=== PATIENT | male | born 1990 | race Two or more races ===

== ENCOUNTER 2016-10-07 17:32 | Emergency (ER) | payer MEDICAID ==
--- NOTE | 2016-10-07 17:42 | ED Physician Documentation ---
PD HPI HEAD INJURY - Stated complaint Stated Complaint: NOSE INJURY - History obtained from History obtained from: Patient - History of Present Illness Mechanism of head injury: Blow (Playing on the trampoline with his 3-year-old nephew and basically was hit in the nose by his nephew accidentally and complains of left-sided nasal pain. He may have had brief loss of consciousness but didn't fall otherwise, doesn't have a generalized headache now. No vomiting. No other injuries.) Review of Systems Constitutional: denies: Fever, Chills, Myalgias Nose: reports: Epistaxis (gone). denies: Rhinorrhea / runny nose Throat: denies: Sore throat Cardiac: denies: Chest pain / pressure, Palpitations PD PAST MEDICAL HISTORY - Present Medications Home Medications: Ambulatory Orders Medication Instructions Recorded Confirmed diazePAM [Valium] 5 - 10 mg PO TID PRN 10/07/16 10/07/16 traMADol [Ultram] 50 mg PO Q4-6H 10/07/16 10/07/16 - Allergies Allergies/Adverse Reactions: Allergies Allergy/AdvReac Type Severity Reaction Status Date / Time No Known Drug Allergies Allergy Verified 10/07/16 17:44 PD ED PE NORMAL - Vitals Vital signs reviewed: Yes - General General: Alert and oriented X 3, No acute distress - HEENT HEENT: PERRL, EOMI, Pharynx benign, Other (tender To the left nasal bridge with mild deformity no active epistaxis, no septal hematoma. No other facial bony tenderness.) - Neck Neck: Supple, no meningeal sign - Neuro Neuro: Alert and oriented X 3, reference services head 2-12 intact, No motor deficit, No sensory deficit, Normal speech - Psych Psych: Normal mood, Normal affect Results - Vitals Vitals: Vital Signs - 24 hr 10/07/16 17:40 Temperature 37.1 C Heart Rate 107 H Respiratory 16 Rate Blood Pressure 144/78 H O2 Saturation 100 Oxygen O2 Source Room air - Rads (name of study) Nasal XR Radiology: EMP read contemporaneously (normal) Departure - Departure Disposition: 01 Home, Self Care Clinical Impression: Nasal contusion Qualifiers: Encounter type: initial encounter Qualified Code(s): S00.33XA - Contusion of nose, initial encounter Condition: Good Record reviewed to determine appropriate education?: Yes Instructions: ED Contusion Nasal Comments: Tylenol or ibuprofen as needed for pain, ice it as needed. Follow up with your Dr. in one week if not better. Your blood pressure was elevated today on check in to the emergency department. This does not mean that you have hypertension, it is a common phenomenon to check into the emergency department and have elevated blood pressure. I recommend that you see your primary care physician within the week to have it rechecked when you're feeling better.
[2016-10-07] MEDS ORDERED: HYDROcod/ACETAM 5/325 MG TABLET ONE (17:50)
[2016-10-07] MEDS: HYDROcod/ACETAM 5/325 MG TABLET PO STA (17:51)
--- NOTE | 2016-10-07 18:19 | XRAY Preliminary Report ---
Exam: XR Nasal Bones IMPRESSION: Normal nasal bone radiography. [facility] SITE ID: [id number]
--- NOTE | 2016-10-07 18:21 | XRAY Report ---
EXAM: NASAL BONES RADIOGRAPHY EXAM DATE: 10/07/2016 06:06 PM. CLINICAL HISTORY: Nasal inj. COMPARISONS: None. TECHNIQUE: 3 views. FINDINGS: Bones: Normal. No fractures or bone lesions. Sinuses: Normal. No opacities or fluid levels. Other: Normal. No soft tissue swelling. IMPRESSION: Normal nasal bone radiography. [facility] Referring Provider Line: [phone] SITE ID: [id number]
[2016-10-07 18:33] VITALS: BP 141/58
== END 2016-10-07 18:33 | disposition home or self-care (01) ==
LOC: ED 17:32
DX: S00.33XA Contusion of nose, initial encounter (principal); W50.0XXA Accidental hit or strike by another person, initial encounter; Y93.44 Activity, trampolining; Y92.017 Garden or yard in single-family (private) house as the place of occurrence of the external cause
CPT/HCPCS: 70160; 99283